=== PATIENT | female | born 1960 | race Caucasian/White ===

== ENCOUNTER 2017-07-05 07:35 | Emergency (ER) | payer BC ==
[2017-07-05] MEDS ORDERED: SODIUM CHLORIDE 0.9% 1,000 ML IV STA ×2 (08:03)
[2017-07-05] MEDS ORDERED: ACETAMINOPHEN TAB 500 MG TAB PO STA (08:03)
[2017-07-05] MEDS ORDERED: ORPHENADRINE 30 MG/ML 2 ML VIAL IVP STA (08:05)
--- NOTE | 2017-07-05 08:06 | ED ---
Fever HPI - General Chief Complaint: Fever Stated Complaint: Fever/ Cold Time Seen by Provider: 07/05/17 07:54 Source: patient, RN notes reviewed, old records reviewed Mode of arrival: ambulatory Limitations: no limitations - History of Present Illness Initial Comments: Patient is a 56-year-old female presents emergency Department chief complaint of fever for the past 2 days, body aches, sore throat and dry cough. Patient reports that she has been exposed to her [id number] with bronchitis. She did not do the flu shot. She states that she has diffuse body aches, stiff neck and headache. Patient states that she has had no rashes or any other abnormalities. She has received all her vaccines. Patient states that she is no nausea or vomiting. Denies any abdominal pain or diarrhea or dysuria. - Related Data Home Medications Medication Instructions Recorded Confirmed Albuterol Sulfate [Ventolin HFA] 1 - 2 puff INHALATION Q6H PRN 12/19/13 07/05/17 Fluticasone/Salmeterol [Advair 1 puff INHALATION RT-BID 12/19/13 07/05/17 500-50 Diskus] Montelukast Sodium [Singulair] 10 mg PO DAILY 12/19/13 07/05/17 Ibuprofen [Motrin] 800 mg PO TID PRN 07/05/17 07/05/17 amLODIPine [Norvasc] 5 mg PO DAILY 07/05/17 07/05/17 Previous Rx's Medication Instructions Recorded Oseltamivir [Tamiflu] 75 mg PO DAILY #5 cap 07/05/17 Promethazine/Dextromethorphan 5 ml PO TID #120 ml 07/05/17 [Phenergan DM Syrup] Allergies Allergy/AdvReac Type Severity Reaction Status Date / Time gluten Allergy Itching Verified 07/05/17 07:42 Review of Systems ROS Statement: Those systems with pertinent positive or pertinent negative responses have been documented in the HPI. ROS Other: All systems not noted in ROS Statement are negative. Past Medical History Past Medical History: Asthma, CVA/TIA, Eye Disorder, GERD/Reflux, Hypertension, Seizure Disorder History of Any Multi-Drug Resistant Organisms: None Reported Past Surgical History: Tubal Ligation Additional Past Surgical History / Comment(s): Brain surgery 1978, D&C Past Anesthesia/Blood Transfusion Reactions: No Reported Reaction Additional Past Anesthesia/Blood Transfusion Reaction / Comment(s): last 1978 Past Psychological History: Anxiety Smoking Status: Former smoker Past Alcohol Use History: Occasional Past Drug Use History: None Reported General Exam - General Exam Comments Initial Comments: 56-year-old female. No distress. Limitations: no limitations General appearance: alert, in no apparent distress Head exam: Present: atraumatic, normocephalic, normal inspection Eye exam: Present: normal appearance, PERRL, EOMI. Absent: scleral icterus, conjunctival injection, periorbital swelling ENT exam: Present: normal exam, mucous membranes moist. Absent: normal oropharynx (erythematous oropharynx, no exudate) Neck exam: Present: normal inspection, other (negative kernig and brudzunke ). Absent: tenderness, meningismus, lymphadenopathy Respiratory exam: Present: normal lung sounds bilaterally. Absent: respiratory distress, wheezes, rales, rhonchi, stridor Cardiovascular Exam: Present: regular rate, normal rhythm, normal heart sounds. Absent: systolic murmur, diastolic murmur, rubs, gallop, clicks GI/Abdominal exam: Present: soft, normal bowel sounds. Absent: distended, tenderness, guarding, rebound, rigid Extremities exam: Present: normal inspection, full ROM, normal capillary refill. Absent: tenderness, pedal edema, joint swelling, calf tenderness Back exam: Present: normal inspection Neurological exam: Present: alert, oriented X3, CN II-XII intact Psychiatric exam: Present: normal affect, normal mood Skin exam: Present: warm, dry, intact, normal color. Absent: rash Course Vital Signs 07/05/17 07/05/17 07:39 08:37 Temperature 100.6 F H Pulse Rate 90 Respiratory 18 16 Rate Blood Pressure 128/76 O2 Sat by Pulse 94 L Oximetry Medical Decision Making - Medical Decision Making 56-year-old female presents emergency Department day with 2 days of fever, bodyache, barking cough and chills. Patient was given IV fluids labwork obtained. Patient is positive for influenza A. Discussed that she is somewhat of the window for benefit of Tamiflu. She said request medication. Patient will be discharged with Phenergan with codeine. Chest x-rays reviewed and normal. Patient's understands that she is follow-up with primary care provider. She'll be written off of work. Patient is history plan will comply. Return parameters were discussed. - Lab Data Result diagrams: 07/05/17 08:25 07/05/17 08:25 Lab Results 07/05/17 07/05/17 07/05/17 Range/Units 08:25 08:25 08:25 WBC 4.5 (3.8-10.6) k/uL RBC 4.04 (3.80-5.40) m/uL Hgb 12.7 (11.4-16.0) gm/dL Hct 37.8 (34.0-46.0) % MCV 93.5 (80.0-100.0) fL MCH 31.5 (25.0-35.0) pg MCHC 33.7 (31.0-37.0) g/dL RDW 11.8 (11.5-15.5) % Plt Count 195 (150-450) k/uL Neutrophils % 75 % Lymphocytes % 15 % Monocytes % 6 % Eosinophils % 1 % Basophils % 1 % Neutrophils # 3.4 (1.3-7.7) k/uL Lymphocytes # 0.7 L (1.0-4.8) k/uL Monocytes # 0.3 (0-1.0) k/uL Eosinophils # 0.0 (0-0.7) k/uL Basophils # 0.0 (0-0.2) k/uL Sodium 136 L (137-145) mmol/L Potassium 3.5 (3.5-5.1) mmol/L Chloride 100 (98-107) mmol/L Carbon Dioxide 27 (22-30) mmol/L Anion Gap 9 mmol/L BUN 13 (7-17) mg/dL Creatinine 0.81 (0.52-1.04) mg/dL Est GFR (MDRD) Af Amer >60 (>60 ml/min/1.73 sqM) Est GFR (MDRD) Non-Af >60 (>60 ml/min/1.73 sqM) Glucose 121 H (74-99) mg/dL Calcium 9.2 (8.4-10.2) mg/dL Total Bilirubin 0.3 (0.2-1.3) mg/dL AST 26 (14-36) U/L ALT 39 (9-52) U/L Alkaline Phosphatase 69 (38-126) U/L Total Protein 7.1 (6.3-8.2) g/dL Albumin 4.3 (3.5-5.0) g/dL Heterophile Antibody Negative (Negative) Influenza Type A RNA (Not Detectd) Influenza Type B (PCR) (Not Detectd) 07/05/17 Range/Units 08:25 WBC (3.8-10.6) k/uL RBC (3.80-5.40) m/uL Hgb (11.4-16.0) gm/dL Hct (34.0-46.0) % MCV (80.0-100.0) fL MCH (25.0-35.0) pg MCHC (31.0-37.0) g/dL RDW (11.5-15.5) % Plt Count (150-450) k/uL Neutrophils % % Lymphocytes % % Monocytes % % Eosinophils % % Basophils % % Neutrophils # (1.3-7.7) k/uL Lymphocytes # (1.0-4.8) k/uL Monocytes # (0-1.0) k/uL Eosinophils # (0-0.7) k/uL Basophils # (0-0.2) k/uL Sodium (137-145) mmol/L Potassium (3.5-5.1) mmol/L Chloride (98-107) mmol/L Carbon Dioxide (22-30) mmol/L Anion Gap mmol/L BUN (7-17) mg/dL Creatinine (0.52-1.04) mg/dL Est GFR (MDRD) Af Amer (>60 ml/min/1.73 sqM) Est GFR (MDRD) Non-Af (>60 ml/min/1.73 sqM) Glucose (74-99) mg/dL Calcium (8.4-10.2) mg/dL Total Bilirubin (0.2-1.3) mg/dL AST (14-36) U/L ALT (9-52) U/L Alkaline Phosphatase (38-126) U/L Total Protein (6.3-8.2) g/dL Albumin (3.5-5.0) g/dL Heterophile Antibody (Negative) Influenza Type A RNA Detected H (Not Detectd) Influenza Type B (PCR) Not Detected (Not Detectd) - Radiology Data Radiology results: report reviewed His x-rays negative for any acute process. Disposition Clinical Impression: Influenza A Disposition: HOME SELF-CARE Condition: Good Instructions: Fever in Adults (ED), Influenza (ED) Additional Instructions: Rest, increase fluids. Follow-up with primary care provider. Return to emergency department if any alarming signs or symptoms occur. Prescriptions: Oseltamivir [Tamiflu] 75 mg PO DAILY #5 cap Promethazine/Dextromethorphan [Phenergan DM Syrup] 5 ml PO TID #120 ml Referrals: Dalton Cabezas DO [Primary Care Provider] - 1-2 days Time of Disposition: 09:21
[2017-07-05 08:35] LABS: Basophils % (A) 1 %; Eosinophils % (A) 1 %; HCT 37.8 % (34.0-46.0); HGB 12.7 gm/dL (11.4-16.0); Lymphocytes # (A) 0.7 k/uL (1.0-4.8); Lymphocytes % (A) 15 %; MCH 31.5 pg (25.0-35.0); MCHC 33.7 g/dL (31.0-37.0); MCV 93.5 fL (80.0-100.0); Mean Platelet Volume 6.4; Monocytes # (A) 0.3 k/uL (0-1.0); Monocytes % (A) 6 %; Neutrophils # (A) 3.4 k/uL (1.3-7.7); Neutrophils % (A) 75 %; Platelet Count 195 k/uL (150-450); RBC 4.04 m/uL (3.80-5.40); RDW 11.8 % (11.5-15.5); WBC 4.5 k/uL (3.8-10.6)
[2017-07-05 08:47] LABS: ALT 39 U/L (9-52); AST 26 U/L (14-36); Albumin 4.3 g/dL (3.5-5.0); Alkaline Phosphatase 69 U/L (38-126); Anion Gap 9 mmol/L; Blood Urea Nitrogen 13 mg/dL (7-17); Calcium 9.2 mg/dL (8.4-10.2); Carbon Dioxide 27 mmol/L (22-30); Chloride 100 mmol/L (98-107); Glucose 121 mg/dL (74-99); Potassium 3.5 mmol/L (3.5-5.1); Sodium 136 mmol/L (137-145); Total Bilirubin 0.3 mg/dL (0.2-1.3); Total Protein 7.1 g/dL (6.3-8.2)
--- NOTE | 2017-07-05 08:59 | XR ---
EXAMINATION TYPE: XR chest 2V DATE OF EXAM: 07/05/2017 COMPARISON: 04/01/2013 HISTORY: Headache TECHNIQUE: Frontal and lateral views of the chest are obtained. FINDINGS: Heart and mediastinum are normal. Lungs are clear. Diaphragm is normal. Bony thorax is int act. IMPRESSION: Normal chest. No change.
[2017-07-05 09:47] VITALS: BP 131/80; PULSE 16; RESP 77; TEMP 97.3
== END 2017-07-05 09:49 | disposition home or self-care (01) ==
LOC: EC 07:35
DX: J10.1 Influenza due to other identified influenza virus with other respiratory manifestations (principal); J45.909 Unspecified asthma, uncomplicated; I10 Essential (primary) hypertension; F41.9 Anxiety disorder, unspecified; Z87.891 Personal history of nicotine dependence; Z79.51 Long term (current) use of inhaled steroids; Z79.899 Other long term (current) drug therapy; Z91.048 Other nonmedicinal substance allergy status
CPT/HCPCS: 36415; 80053; 83605; 85025; 86308; 87040; 87502; 71020; 99284; 96374; 96361; J2360

== ENCOUNTER → 2017-07-22 | Outpatient (CLI) | payer BC ==
--- NOTE | 2017-07-22 11:13 | XR ---
EXAMINATION TYPE: XR chest 2V DATE OF EXAM: 07/22/2017 COMPARISON: 07/05/2017 INDICATION: Bronchitis, COPD TECHNIQUE: Frontal and lateral views of the chest are obtained. FINDINGS: The heart size is normal. The pulmonary vasculature is normal. The lungs are clear. Findings are stable from June 2017 IMPRESSION: 1. No acute pulmonary process.
== END | disposition home or self-care (01) ==
LOC: RADXRMAIN 10:23
PROVIDERS: ATTEND Family Medicine
DX: J20.0 Acute bronchitis due to Mycoplasma pneumoniae (principal)
CPT/HCPCS: 71046

== ENCOUNTER → 2018-01-14 | Outpatient (CLI) | payer BC ==
--- NOTE | 2018-01-18 09:37 | MM ---
Reason for exam: screening (asymptomatic). Last mammogram was performed 12 years and 10 months ago. Physical Findings: A clinical breast exam by your physician is recommended on an annual basis and results should be correlated with mammographic findings. MG 3D Screening Mammo W/Cad Bilateral CC and MLO view(s) were taken. Prior study comparison: May 29, 2015, mammogram, performed at [facility]. May 26, 2014, mammogram, performed at [facility]. March 27, 2005, bilateral screening mammogram w/CAD. There are scattered fibroglandular densities. No suspicious abnormality. No significant changes when compared with prior studies. ASSESSMENT: Negative, BI-RAD 1 RECOMMENDATION: Routine screening mammogram of both breasts in 1 year.
== END | disposition home or self-care (01) ==
LOC: RADMAMWWP 13:45
PROVIDERS: ATTEND Obstetrics & Gynecology
DX: Z12.31 Encounter for screening mammogram for malignant neoplasm of breast (principal)
CPT/HCPCS: 77063; 77067

== ENCOUNTER → 2018-02-23 | Outpatient (CLI) | payer BC ==
--- NOTE | 2018-02-23 17:43 | NM ---
EXAMINATION TYPE: NM bone scan whole body DATE OF EXAM: 02/23/2018 COMPARISON: NONE HISTORY: Polyarthralgia, rheumatoid factor Delayed whole-body scanning was performed following the injection of 25.1 mCi Tc 99m MDP. Images acq uired 3.5 hours post injection. FINDINGS: Soft tissue uptake is normal. Mild uptake within the lumbar spine is likely due to degenerative bains e. Uptake in the shoulders, elbows, wrists, feet, ankles, sternoclavicular joints may be degenerative . There is uptake at the level of the greater trochanter, right hip. IMPRESSION: Findings could be indicative of underlying arthropathy, degenerative disc disease.
== END | disposition home or self-care (01) ==
LOC: RADNMMAIN 10:55
PROVIDERS: ATTEND Internal Medicine Rheumatology
DX: M25.50 Pain in unspecified joint (principal); R76.8 Other specified abnormal immunological findings in serum; G89.29 Other chronic pain
CPT/HCPCS: 78306; A9503

== ENCOUNTER → 2019-07-28 | Outpatient (CLI) | payer BC ==
--- NOTE | 2019-08-01 09:07 | MM ---
Reason for exam: screening (asymptomatic). Last mammogram was performed 1 year and 6 months ago. History: Patient is postmenopausal. Family history of breast cancer in mother, breast cancer in daughter, breast cancer in maternal aunt, and breast cancer in maternal cousin. Took hormonal contraceptives for 20 years. Physical Findings: A clinical breast exam by your physician is recommended on an annual basis and results should be correlated with mammographic findings. MG 3D Screening Mammo W/Cad Bilateral CC and MLO view(s) were taken. Prior study comparison: January 14, 2018, bilateral MG 3d screening mammo w/cad. May 29, 2015, mammogram, performed at [facility]. The breast tissue is heterogeneously dense. This may lower the sensitivity of mammography. No significant changes when compared with prior studies. ASSESSMENT: Benign, BI-RAD 2 RECOMMENDATION: Routine screening mammogram of both breasts in 1 year.
== END | disposition home or self-care (01) ==
LOC: RADMAMWWP 16:37
PROVIDERS: ATTEND Obstetrics & Gynecology
DX: Z12.31 Encounter for screening mammogram for malignant neoplasm of breast (principal)
CPT/HCPCS: 77063; 77067

== ENCOUNTER → 2020-09-21 | Outpatient (CLI) | payer BC ==
--- NOTE | 2020-09-25 10:39 | MM ---
Reason for exam: screening (asymptomatic). Last mammogram was performed 1 year and 2 months ago. History: Patient is postmenopausal. Family history of breast cancer in mother, breast cancer in daughter, breast cancer in maternal aunt, and breast cancer in maternal cousin. Took hormonal contraceptives for 20 years. Physical Findings: A clinical breast exam by your physician is recommended on an annual basis and results should be correlated with mammographic findings. MG Screening Mammo w CAD Bilateral CC and MLO view(s) were taken. Prior study comparison: July 28, 2019, bilateral MG 3d screening mammo w/cad. January 14, 2018, bilateral MG 3d screening mammo w/cad. There are scattered fibroglandular densities. No significant changes when compared with prior studies. ASSESSMENT: Negative, BI-RAD 1 RECOMMENDATION: Routine screening mammogram of both breasts in 1 year.
== END ==
LOC: RADMAMWWP 14:21
PROVIDERS: ATTEND Obstetrics & Gynecology
DX: Z12.31 Encounter for screening mammogram for malignant neoplasm of breast (principal); Z80.3 Family history of malignant neoplasm of breast; Z78.0 Asymptomatic menopausal state
CPT/HCPCS: 77067

== ENCOUNTER → 2022-01-15 | Outpatient (CLI) | payer BC, OTHER ==
[2022-01-15 13:58] VITALS: BP 143/84; PULSE 79; RESP 18; TEMP 98.1
--- NOTE | 2022-01-22 07:29 | P.PAINPG ---
PQRS Measure Charge Sheet Comment: HISTORY OF PRESENT ILLNESS: 61 yr old female w at side as a referral from Dr. Jeffery presents today with severe and chronic neck pain secondary to DDD and facet arthropathy for evaluation. Pt states her pain level is currently at 5/10 in intensity, constant, achy sensation in the middle aspect of her cervical spine with radiation of burning pain occasionally to the back of her head into her shoulders. Pain is provoked with rotation and hyperextension. Pain is relieved with medications (ibuprofen), heat, daily home stretching regimen, repositioning and rest. Patient has not attended physical therapy due to excessive a few constant vehicle problems. CT myelogram of the cervical spine reviewed. Patient states she cannot get an MRI of the cervical spine due to cerebral clamps. PMH: Asthma, CVA/TIA, Eye Disorder, GERD, HTN, SZ Disorder, Anxiety, RA, Hypothyroidism PSH: Tubal Ligation, D & C, Brain Surgery (1978) SH: Former Tobacco user, Occasional ETOH, No illicit drug use FH: Non contributory All: Gluten Meds: See list REVIEW OF ORGAN SYSTEMS: CONSTITUTIONAL: No fevers or chills. No recent weight loss. NEUROLOGICAL: + numbness and tingling along the distal extremities. No seizure disorders or headaches. MUSCULOSKELETAL: + pain PSYCHIATRIC: Denies current depression or suicidal thoughts. Physical Examinations : Constitutional : Cooperative , not in acute distress . Neurologic : Cranial nerve II to XII intact. No focal neurological deficits. Psychiatric : alert & oriented x 3. Matching mood & appropriate affect. Judgment & insight intact. Musculoskeletal : Cervical Spine Motor strength in the deltoid and biceps: Normal right side. Normal Left side Motor strength biceps and the wrist extensors: Normal right side . Normal left side Motor strength in the triceps muscle: Normal right side. Normal left side Deep tendon reflexes: Normal at the biceps. Normal at Brachioradialis. Normal at triceps Vertebral body tenderness to deep palpation over Cervical facet loading test: positive bilaterally over C3-C4, C4-C5 Spurling test: positive bilaterally Neck distraction test: positive bilaterally Joey sign: positive bilaterally Lumbar spine Motor strength lower extremities ,thigh and legs 5/5 Right side , 5/5 Left side Deep tendon reflexes : Normal Knee Jerk. Normal Ankle Jerk Vertebral body tenderness over Lumbar facet Loading Test: positive Right / positive Left Range of motion of the lumbar spine Flexion 30 degrees, extension 10 degrees Straight Leg Raise test: Left/ Right positive at degree Adrián test: positive right / positive left. Severe tenderness over the Sacroiliac joint on the Right / Left sides Gaenslen test: positive bilaterally Seated flexion test: positive bilaterally. Sacral spine : Severe tenderness over the Sacroiliac joint: right side / left side Range of motion: Flexion of the lumbar spine <60 degrees Range of motion: Extension of the lumbar spine <20 degrees Gaenslen's Test positive Edwin's Test positive Adrián test: positive right side / left side Thigh Thrust Test Sacral Thrust Test Imaging: CT Myelogram of cervical spine Assessment/ Plan : Cervical DDD Recommendation of BL MBB C3-C4, C4-C5. May need a series of injections, up until RFA, for optimal pain relief. Risks, benefits of procedure discussed and patient verbalized understanding. Denies aspirin or anti- coagulant use or medical history of diabetes. Protocol for discontinuation/ continuation of medications lorie procedure discussed. All questions answered. I have spent greater than 30 minutes on patient care today. Dr Valdovinos was available by phone for the evaluation of this patient. The time was used to review the medical records including relevant urine studies and Prescription history (MAPs), review of the available imaging, evaluation and examination of the patient, coordination of care with the medical staff and if applicable referring physicians, as well as creation of the medical record PQRS Narrative: Smoking Status Former smoker Home Medications: Ambulatory Orders Albuterol Sulfate [Ventolin HFA] 1 - 2 puff INHALATION Q6H PRN 12/19/13 Fluticasone Propion/Salmeterol [Advair 500-50 Diskus] 1 puff INHALATION RT-BID 12/19/13 Montelukast Sodium [Singulair] 10 mg PO DAILY 12/19/13 Ibuprofen [Motrin] 800 mg PO TID PRN 07/05/17 Oseltamivir [Tamiflu] 75 mg PO DAILY #5 cap 07/05/17 Promethazine/Dextromethorphan [Phenergan DM Syrup] 5 ml PO TID #120 ml 07/05/17 amLODIPine [Norvasc] 5 mg PO DAILY 07/05/17 Controlled Substance Measures - Controlled Substance Measures Is patient prescribed a controlled substance at discharge?: No
== END ==
LOC: PNWHC3 12:32
PROVIDERS: ATTEND Specialist
DX: M47.892 Other spondylosis, cervical region (principal); M50.30 Other cervical disc degeneration, unspecified cervical region; J45.909 Unspecified asthma, uncomplicated; M06.9 Rheumatoid arthritis, unspecified; Z86.73 Personal history of transient ischemic attack (TIA), and cerebral infarction without residual deficits; K21.9 Gastro-esophageal reflux disease without esophagitis; I10 Essential (primary) hypertension; F41.9 Anxiety disorder, unspecified; E03.9 Hypothyroidism, unspecified; Z87.891 Personal history of nicotine dependence; Z91.018 Allergy to other foods
CPT/HCPCS: 99211

== ENCOUNTER → 2022-03-06 | Outpatient (CLI) | payer BC, OTHER ==
[2022-03-06 13:22] VITALS: BP 145/80; PULSE 92; RESP 16
--- NOTE | 2022-03-06 14:19 | P.PAINPG ---
PQRS Measure Charge Sheet Comment: A 61 yr old female with a history of severe and chronic neck pain secondary to cervical degenerative disc diseases and spondylosis with facet arthropathy without myelopathy presents today for evaluation s/p BL MBB C3-C4, C4-C5 #1. Pt states she received 75% pain relief x 1 day s/p procedure. Pain level is c urrently at 4 /10 in intensity, intermittent, localized in the mid cervical spine, burning, grinding in character w shooting towards the BUEs. Pain is provoked by lifting and flexion of neck. Pt is worried PT would provoke pain again. Pain is alleviated with medications (Ibuprofen 800mg), alternates heat & ice, guided stretches and yoga, repositioning and rest. Interventional pain procedures completed include BL C3-C5 #1 Patient is currently on Ibuprofen Patient denies any side effects of the medication(s), denies excessive drowsiness or sleepiness, denies suicidal ideation and reports that the current pain medication is helping to control the pain and improve activities of daily living. Patient denies any motor or sensory deficits. Patient denies any fever or night sweats, denies any change in the bowel movements or urination. Physical Examination: -Constitutional: Cooperative. Not in acute distress . - Neurologic: Cranial nerve II to XII intact. No focal neurological deficits. - Psychatric: Alert & oriented x 3. Matching mood & appropriate affect. Judgment and insight intact. - Musculoskeletal: Cervical spine: Muscle bulk/ tone/ strength in the bilateral upper extremities normal Vertebral body tenderness to palpation over Spurling test positive Distraction test positive Facet loading test positive over BL C3-C4, C4-C5 w jump reflex upon palpation Thoracic spine Muscle bulk / tone/ strength in the bilateral paraspinal muscles normal Vertebral body tender to palpation over Facet loading test positive Lumbar spine: Motor bulk/ tone/ strength lower extremities , thigh and legs : 5/5 Deep tendon reflexes : Normal Knee Jerk. Normal Ankle Jerk . Vertebral body tenderness to palpation over Lumbar Facet Loading Test positive Straight Leg Raise: positive at 30 degrees right side/ left side Gaenslen's Test positive Sacral spine : Severe tenderness over the Sacroiliac joint: right side / left side Range of motion: Flexion of the lumbar spine <60 degrees Range of motion: Extension of the lumbar spine <20 degrees Gaenslen's Test positive Edwin's Test positive Adrián test: positive right side / left side Thigh Thrust Test Sacral Thrust Test Assessment and plan: Chronic neck pain secondary to cervical degenerative disc disease , spondylosis with facet arthropathy without myelopathy Recommendation of BL MBB C3-C4, C4-C5 #2. May need a series of injections, up until RFA, for optimal pain relief. Risks, benefits of procedure discussed and pt verbalized understanding. Denies anticoagulant use or medical history of diabetes. All patient questions answered MAPS reviewed and it was appropriate. I have spent less than 30 minutes on patient care today. Dr Valdovinos was available by phone for the evaluation of this patient. The time was used to review the medical records including relevant urine studies and Prescription history (MAPs), review of the available imaging, evaluation and examination of the patient, coordination of care with the medical staff and if applicable referring physicians, as well as creation of the medical record PQRS Narrative: Smoking Status Former smoker Hx Alcohol Use (MH) Yes: SOCIAL Home Medications: Ambulatory Orders Albuterol Sulfate [Ventolin HFA] 1 - 2 puff INHALATION Q6H PRN 12/19/13 Fluticasone Propion/Salmeterol [Advair 500-50 Diskus] 1 puff INHALATION RT-BID 12/19/13 Montelukast Sodium [Singulair] 10 mg PO DAILY 12/19/13 Ibuprofen [Motrin] 800 mg PO TID PRN 07/05/17 amLODIPine [Norvasc] 5 mg PO DAILY 07/05/17 ALPRAZolam [Xanax] 1 mg PO HS 02/20/22 Ascorbic Acid [Vitamin C] 500 mg PO DAILY 02/20/22 Cetirizine HCl [Zyrtec] 10 mg PO DAILY 02/20/22 Dextroamphetamine/Amphetamine [Adderall] 30 mg PO DAILY 02/20/22 Inulin/Chromium Picolinate [Fiber Gummies Chew] 1 tab PO DAILY 02/20/22 Levothyroxine Sodium [Synthroid] 50 mcg PO DAILY 02/20/22 Vitamin B Complex 1 each PO DAILY 02/20/22 Controlled Substance Measures - Controlled Substance Measures Is patient prescribed a controlled substance at discharge?: No
== END ==
LOC: PNWHC3 12:38
PROVIDERS: ATTEND Specialist
DX: M47.812 Spondylosis without myelopathy or radiculopathy, cervical region (principal); M50.30 Other cervical disc degeneration, unspecified cervical region; G89.29 Other chronic pain; Z87.891 Personal history of nicotine dependence; Z91.018 Allergy to other foods
CPT/HCPCS: 99211

== ENCOUNTER 2022-05-02 08:46 | Day surgery (SDC) | payer BC, OTHER ==
[2022-04-30 13:13] VITALS: BMI 24.8
[~2022-05-02 08:46] MED LIST: LACTATED RINGERS 1,000 ML IV SCH; LIDOCAINE 1% (10MG/ML) FOR IV START INTRADERMA PRN
[2022-05-02 09:23] VITALS: RESP 16; TEMP 97.2
[2022-05-02] MEDS ORDERED: ROPIVACAINE 5 MG/ML 20 ML AMPULE ONE (09:26)
[2022-05-02] MEDS ORDERED: methylPREDNISolone ACETATE 40 MG/ML 1 ML VIAL ONE (09:26)
[2022-05-02] MEDS ORDERED: fentaNYL (PF) 50 MCG/ML 2 ML AMP ONE (09:26)
[2022-05-02] MEDS ORDERED: MIDAZOLAM 2 MG/2 ML VIAL ONE (09:26)
--- NOTE | 2022-05-02 09:47 | P.PCN ---
Date of Procedure: 05/02/22 Procedure(s) Performed: PREOPERATIVE DIAGNOSIS: 1-Cervical Spondylosis with Facet Arthropathy.without myelopathy. 2-cervical degenerative disc disease POSTOPERATIVE DIAGNOSIS: Same as preoperative diagnosis. PROCEDURES: Diagnostic bilateral C3, C4 , C5 medial branch blocks, with flu oroscopic guidance (fluoroscopy images available in radiology department ) ( to target the facet joint at bilateral C3-4 , C4- 5) ANESTHESIA: Monitored anesthesia care as per anesthesia department . EBL: Minimal PROCEDURE INDICATION: The patient with neck pain secondary to cervical arthropathy unresponsive to more conservative treatments. PROCEDURE DESCRIPTION / TECHNIQUE: The patient was seen and identified in the preoperative area. Risks, benefits, complications, and alternatives were discussed with the patient, the patient agreed to proceed with the procedure and signed the consent. IV was started. Vital signs remained stable throughout the procedure. Patient was taken to the OR and time out was completed. The patient was placed in the prone position on the procedure table. A pillow was placed under the patients chest to increase the cervical interlaminar space. The cervical area was prepped and draped in the usual sterile fashion. Critical pause was taken. Vital signs were closely monitored during the procedure. Conscious sedation was used during the procedure to decrease patients anxiety. Using cross-table lateral fluoroscopy, the centroid of the trapezoid of right C3, C4 , C5 , was identified, marked, and localized with 1% lidocaine 1 ml at each level for skin and Sub Q infiltrations . Subsequently, a 25 G 3 spinal needle was advanced guided by fluoroscopy to the centroid of the trapezoid of Right C3, C4 , C5, Weidman tip position was confirmed at the centroid of the trapezoids of Right C3 , C4 , C5 with anteroposterior fluoroscopy. Subsequently, 1.5 ml of preservative-free Ropivacaine 0.5% mixed with Depo- Medrol 20 mg and half ml of the mixture was injected after negative aspiration for blood and CSF. Weidman was then removed intact the same procedure was repeated at the left C3 , C4 , C5 ,levels. COMPLICATIONS: No acute complications. DISPOSITION / PLANS: The patient was placed in a supine position and transferred to the recovery area in a stable condition for observation and was discharged from the recovery room after meeting discharge criteria. Home discharge instructions given to the patient by the staff. The patient was reexamined prior to discharge. The patient will schedule a follow up in the clinic in 2-4 weeks.
[2022-05-02] MEDS ORDERED: IV FLUID CONTINUATION 700 ML IV ONE (09:54)
--- NOTE | 2022-05-02 10:02 | FL ---
Fluoroscopy History: Pain 26 sec FL
[2022-05-02 10:07] VITALS: BP 139/89; PULSE 72
== END 2022-05-02 10:27 | disposition home or self-care (01) ==
LOC: ORPAIN 08:46
PROVIDERS: ATTEND Specialist
DX: M47.812 Spondylosis without myelopathy or radiculopathy, cervical region (principal); M50.31 Other cervical disc degeneration, high cervical region; I10 Essential (primary) hypertension; J45.909 Unspecified asthma, uncomplicated; E03.9 Hypothyroidism, unspecified; F41.9 Anxiety disorder, unspecified; K21.9 Gastro-esophageal reflux disease without esophagitis; Z79.899 Other long term (current) drug therapy
CPT/HCPCS: 64490; 64491; J2250; J1030; J3010; J2795

== ENCOUNTER → 2022-05-21 | Outpatient (CLI) | payer BC, OTHER ==
--- NOTE | 2022-05-22 19:02 | MM ---
Reason for Exam: Screening (asymptomatic). Last mammogram was performed 1 year(s) and 8 month(s) ago. Patient History: Menarche at age 12. First Full-Term at age 21. Postmenopausal. Patient used Hormonal Contraceptives for 20 years. Maternal cousin had breast cancer. Maternal aunt had breast cancer. Daughter had breast cancer. Mother had breast cancer. Risk Values: Cammy 5 year model risk: 7.2%. NCI Lifetime model risk: 33.4%. Prior Study Comparison: 01/14/2018 Bilateral Screening Mammogram, [facility]. 07/28/2019 Bilateral Screening Mammogram, [facility]. 09/21/2020 Bilateral Screening Mammogram, [facility]. Tissue Density: There are scattered fibroglandular densities. Findings: Analyzed By CAD. Unchanged asymmetric density central posterior left cc view. There is no suspicious group of microcalcifications or new suspicious mass in either breast. Overall Assessment: Benign, BI-RAD 2 Management: Screening Mammogram of both breasts in 1 year. Note the patient's very high Cammy score and overall lifetime risk for the development of breast cancer. Consider specialist referral to assess eligibility for a risk reducing agent. In addition, the patient may qualify for future screening with alternating mammogram and breast MRI. Patient should continue monthly self breast exams. These results should not preclude additional follow-up of suspicious palpable abnormalities. Electronically signed and approved by: Quan Pickering M.D. Radiologist
== END | disposition home or self-care (01) ==
LOC: RADMAMWWP 11:22
PROVIDERS: ATTEND Obstetrics & Gynecology
DX: Z12.31 Encounter for screening mammogram for malignant neoplasm of breast (principal); Z78.0 Asymptomatic menopausal state; Z80.3 Family history of malignant neoplasm of breast
CPT/HCPCS: 77063; 77067

== ENCOUNTER → 2022-05-26 | Outpatient (CLI) | payer BC, OTHER ==
[2022-05-26 10:31] VITALS: BP 160/79; PULSE 80; RESP 18; TEMP 98
--- NOTE | 2022-05-26 14:46 | P.PAINPG ---
PQRS Measure Charge Sheet Comment: A 61 yr old female w at side with a history of severe and chronic neck pain secondary to cervical DDD and spondylosis with facet arthropathy without myelopathy presents today for evaluation s/p BL MBB C3-C4, C4-C5 #2. Pt states she experienced 90% pain relief x 7 days s/p procedure. Pain level is currently at 7/10 in intensity, constant, localized in the mid to lower cervical spine, sharp/ achy in character w shooting towards the BL shoulders. Pain is provoked by pushing, pulling, lifting. Pain is alleviated with medications (ibuprofen), injections, ice, heat, home stretching regimen, repositioning and rest. Interventional pain procedures completed include BL MBB C3-C5 x2 Patient is currently on ibuprofen Patient denies any side effects of the medication(s), denies excessive drowsiness or sleepiness, denies suicidal ideation and reports that the current pain medication is helping to control the pain and improve activities of daily living. Patient denies any motor or sensory deficits. Patient denies any fever or night sweats, denies any change in the bowel movements or urination. Physical Examination: -Constitutional: Cooperative. Not in acute distress . - Neurologic: Cranial nerve II to XII intact. No focal neurological deficits. - Psychatric: Alert & oriented x 3. Matching mood & appropriate affect. Judgment and insight intact. - Musculoskeletal: Cervical spine: Muscle bulk/ tone/ strength in the bilateral upper extremities normal Vertebral body tenderness to palpation over Spurling test positive Distraction test positive Facet loading test positive TTP over BL C3-C4, C4-C5 facets Thoracic spine Muscle bulk / tone/ strength in the bilateral paraspinal muscles normal Vertebral body tender to palpation over Facet loading test positive Lumbar spine: Motor bulk/ tone/ strength lower extremities , thigh and legs : 5/5 Deep tendon reflexes : Normal Knee Jerk. Normal Ankle Jerk . Vertebral body tenderness to palpation over Lumbar Facet Loading Test positive Straight Leg Raise: positive at 30 degrees right side/ left side Gaenslen's Test positive Sacral spine : Severe tenderness over the Sacroiliac joint: right side / left side Range of motion: Flexion of the lumbar spine <60 degrees Range of motion: Extension of the lumbar spine <20 degrees Gaenslen's Test positive Adrián test: positive right side / left side Thigh Thrust Test Sacral Thrust Test Assessment and plan: Chronic neck pain secondary to cervical degenerative disc disease, spondylosis with facet arthropathy without myelopathy Recommendation of BL RFA C3- C4, C4-C5. May need to schedule L and R sided OR appointments separately if timing is an issue. Risks, benefits of procedure discussed and pt verbalized understanding. Admits to anticoagulant use or medical history of diabetes. Protocol for discontinuation/ continuation of medications lorie procedure discussed. All patient questions answered I have spent less than 30 minutes on patient care today. Dr Valdovinos was available by phone for the evaluation of this patient. The time was used to review the medical records including relevant urine studies and Prescription history (MAPs), review of the available imaging, evaluation and examination of the patient, coordination of care with the medical staff and if applicable referring physicians, as well as creation of the medical record PQRS Narrative: Smoking Status Former smoker Hx Alcohol Use (MH) Yes: SOCIAL Home Medications: Ambulatory Orders Albuterol Sulfate [Ventolin HFA] 1 - 2 puff INHALATION Q6H PRN 12/19/13 Fluticasone Propion/Salmeterol [Advair 500-50 Diskus] 1 puff INHALATION BID 12/19/13 Montelukast Sodium [Singulair] 10 mg PO DAILY 12/19/13 Ibuprofen [Motrin] 800 mg PO TID PRN 07/05/17 amLODIPine [Norvasc] 5 mg PO DAILY 07/05/17 ALPRAZolam [Xanax] 1 mg PO HS 02/20/22 Ascorbic Acid [Vitamin C] 500 mg PO DAILY 02/20/22 Cetirizine HCl [Zyrtec] 10 mg PO DAILY 02/20/22 Dextroamphetamine/Amphetamine [Adderall] 30 mg PO DAILY 02/20/22 Inulin/Chromium Picolinate [Fiber Gummies Chew] 1 tab PO DAILY 02/20/22 Levothyroxine Sodium [Synthroid] 50 mcg PO DAILY 02/20/22 Vitamin B Complex 1 each PO DAILY 02/20/22 Controlled Substance Measures - Controlled Substance Measures Is patient prescribed a controlled substance at discharge?: No
== END ==
LOC: PNWHC3 08:47
PROVIDERS: ATTEND Specialist
DX: M47.812 Spondylosis without myelopathy or radiculopathy, cervical region (principal); M50.30 Other cervical disc degeneration, unspecified cervical region; G89.29 Other chronic pain; Z79.01 Long term (current) use of anticoagulants; E11.9 Type 2 diabetes mellitus without complications; Z79.4 Long term (current) use of insulin; Z87.891 Personal history of nicotine dependence; Z91.018 Allergy to other foods
CPT/HCPCS: 99211

== ENCOUNTER → 2023-04-15 | Outpatient (CLI) | payer OTHER ==
--- NOTE | 2023-04-15 13:30 | XR ---
EXAMINATION TYPE: XR chest 2V DATE OF EXAM: 04/15/2023 COMPARISON: 07/22/2017 HISTORY: Shortness of breath TECHNIQUE: Frontal and lateral views of the chest are obtained. FINDINGS: Scattered senescent parenchymal changes noted. Hyperinflation compatible with COPD. No evidence for infiltrate. No evidence for atelectasis. Heart size is stable. Mediastinal structures are stable and grossly unremarkable. No evidence for hilar prominence. Degenerative changes dorsal spine. IMPRESSION: 1. No evidence for acute pulmonary disease.
== END | disposition home or self-care (01) ==
LOC: RADXRMAIN 12:59
PROVIDERS: ATTEND Family Medicine
DX: J18.0 Bronchopneumonia, unspecified organism (principal)
CPT/HCPCS: 71046

== ENCOUNTER → 2023-05-07 | Outpatient (CLI) | payer OTHER ==
--- NOTE | 2023-05-07 10:33 | US ---
EXAMINATION TYPE: US gallbladder DATE OF EXAM: 05/07/2023 COMPARISON: NONE CLINICAL INDICATION: Female, 62 years old with history of R10.9 ABD PAIN; RUQ pain x 1 year. TECHNIQUE: Multiple sonographic images of the right upper quadrant are obtained. FINDINGS: EXAM MEASUREMENTS: Liver Length: 15.8 cm Gallbladder Wall: 0.2 cm CBD: 0.7 cm Right Kidney: 9.8 x 3.9 x 5.3 cm Pancreas: Body and Tail obscured by overlying bowel gas Liver: wnl Gallbladder: wnl Evidence for sonographic Encarnacion's sign: none CBD: wnl Right Kidney: wnl Visualized portions of the pancreas unremarkable. The body and tail is obscured by overlying bowel ga s. The liver is unremarkable without focal lesion. Gallbladder demonstrates no evidence of wall thick ening, gallstones, or surrounding fluid. Per geotechnical department manager, negative sonographic Encarnacion sign. Common bi le duct is upper limits of normal. Right kidney measures no evidence of hydronephrosis, nephrolithias is, or solid mass. IMPRESSION: 1. Common bile duct at the upper limits of normal measuring 7 mm. Correlation with biliary labs is r ecommended. 2. No ultrasound evidence for acute cholecystitis.
== END | disposition home or self-care (01) ==
LOC: RADUSWWP 08:26
PROVIDERS: ATTEND Family Medicine
DX: R10.11 Right upper quadrant pain (principal)
CPT/HCPCS: 76705

== ENCOUNTER → 2023-07-15 | Outpatient (CLI) | payer OTHER ==
--- NOTE | 2023-07-19 14:57 | MM ---
Reason for Exam: Screening (asymptomatic). Last mammogram was performed 1 year(s) and 2 month(s) ago. Patient History: Menarche at age 12. First Full-Term at age 21. Postmenopausal. Patient used Hormonal Contraceptives for 20 years. Maternal cousin had breast cancer. Maternal aunt had breast cancer. Risk Values: Cammy 5 year model risk: 1.1%. NCI Lifetime model risk: 5.8%. Prior Study Comparison: 07/28/2019 Bilateral Screening Mammogram, [facility]. 09/21/2020 Bilateral Screening Mammogram, [facility]. 05/21/2022 Bilateral MG 3D screening mammo w/cad, [facility]. Tissue Density: There are scattered fibroglandular densities. Findings: Analyzed By CAD. The pattern is symmetrical and stable. No significant interval changes. No suspicious groups of microcalcifications, spiculated or lobular masses, architectural distortion or other secondary signs of malignancy are mammographically apparent. Overall Assessment: Negative, BI-RAD 1 Management: Screening Mammogram of both breasts in 1 year. A negative mammogram report should not preclude additional follow up of suspicious palpable abnormalities. Patient should continue monthly self breast exam. A clinical breast exam by your physician is recommended on an annual basis and results should be correlated with mammographic findings. Electronically signed and approved by: Skyler Stevenson D.O. Radiologis
== END | disposition home or self-care (01) ==
LOC: RADMAMWWP 12:58
PROVIDERS: ATTEND Obstetrics & Gynecology
DX: Z12.31 Encounter for screening mammogram for malignant neoplasm of breast (principal); Z80.3 Family history of malignant neoplasm of breast; Z78.0 Asymptomatic menopausal state
CPT/HCPCS: 77067

== ENCOUNTER → 2023-08-13 | Outpatient (CLI) | payer OTHER ==
--- NOTE | 2023-08-14 07:31 | XR ---
EXAMINATION TYPE: XR chest 2V DATE OF EXAM: 08/13/2023 COMPARISON: 04/15/2023 HISTORY: Shortness of breath TECHNIQUE: Frontal and lateral views of the chest are obtained. FINDINGS: Scattered senescent parenchymal changes noted. Hyperinflation compatible with COPD. No evidence for infiltrate. No evidence for atelectasis. Heart size is stable. Mediastinal structures are stable and grossly unremarkable. No evidence for hilar prominence. Degenerative changes dorsal spine. IMPRESSION: 1. No evidence for acute pulmonary disease.
== END | disposition home or self-care (01) ==
LOC: RADXRMAIN 15:30
PROVIDERS: ATTEND Family Medicine
DX: R05.9 Cough, unspecified (principal); R06.02 Shortness of breath; Z87.891 Personal history of nicotine dependence
CPT/HCPCS: 71046

== ENCOUNTER 2023-09-16 07:08 | Day surgery (SDC) | payer OTHER ==
[2023-09-14 11:11] VITALS: BMI 22.6
[~2023-09-16 07:08] MED LIST changes: -LACTATED RINGERS 1,000 ML IV SCH
--- NOTE | 2023-09-16 07:32 | P.GSHP ---
History of Present Illness H&P Date: 09/16/23 CHIEF COMPLAINT: GERD and colon screen HISTORY OF PRESENT ILLNESS: The patient is a 63-year-old female who presents with gastroesophageal reflux disease and need for colon screen. Upper and lower endoscopy were offered for further evaluation and management. PAST MEDICAL HISTORY: Please see list. PAST SURGICAL HISTORY: Please see list. MEDICATIONS: Please see list. ALLERGIES: Please see list. SOCIAL HISTORY: No illicit drug use FAMILY HISTORY: No reports of Crohn disease or ulcerative colitis. REVIEW OF ORGAN SYSTEMS: CONSTITUTIONAL: No reports of fevers or chills. GI: Denies any blood in stools or constipation. PHYSICAL EXAM: VITAL SIGNS: Stable GENERAL: Well-developed pleasant in no acute distress. HEENT: No scleral icterus. Extraocular movements grossly intact. Moist buccal mucosa. NECK: Supple without lymphadenopathy. CHEST: Unlabored respirations. Equal bilateral excursions. CARDIOVASCULAR: Regular rate and rhythm. Distal 2+ pulses. ABDOMEN: Soft, nondistended. MUSCULOSKELETAL: No clubbing, cyanosis, or edema. ASSESSMENT: 1. Gastroesophageal reflux disease 2. Colon screen. PLAN: 1. Recommend proceeding with an upper and lower endoscopy Past Medical History Past Medical History: Asthma, CVA/TIA, Eye Disorder, Fibromyalgia, GERD/Reflux, Hypertension, Rheumatoid Arthritis (RA), Seizure Disorder, Thyroid Disorder Additional Past Medical History / Comment(s): prior bleeding with stools,had Influenza A Aug/September 2023,TIA @ age of 52-no residual effects,thyroid nodule,partially blind rt eye,last seizure early History of Any Multi-Drug Resistant Organisms: None Reported Past Surgical History: Tubal Ligation Additional Past Surgical History / Comment(s): Brain surgery 1979 aneurysm-22 hour surgery, D&C,mult thyroid nodule bx Past Anesthesia/Blood Transfusion Reactions: No Reported Reaction Additional Past Anesthesia/Blood Transfusion Reaction / Comment(s): twightlight sleep did not work for prior thyroid bx's,myelogram, or neck injections. no problems with prior blood transfusion Smoking Status: Former smoker - Past Family History Father Family Medical History: Diabetes Mellitus, Hypertension, Pulmonary Embolus Additional Family Medical History / Comment(s): phlebitis Mother Family Medical History: COPD, Thyroid Disorder Additional Family Medical History / Comment(s): Alzheimer's Medications and Allergies Home Medications Medication Instructions Recorded Confirmed Type Albuterol Sulfate [Ventolin HFA] 1 - 2 puff INHALATION Q6H PRN 12/19/13 09/16/23 History Montelukast Sodium [Singulair] 10 mg PO QAM 12/19/13 09/16/23 History amLODIPine [Norvasc] 5 mg PO HS 07/05/17 09/16/23 History ALPRAZolam [Xanax] 1 mg PO HS 02/20/22 09/16/23 History Ascorbic Acid [Vitamin C] 500 mg PO DAILY 02/20/22 09/16/23 History Cetirizine HCl [Zyrtec] 10 mg PO DAILY 02/20/22 09/16/23 History Dextroamphetamine/Amphetamine 30 mg PO DAILY 02/20/22 09/16/23 History [Adderall] Levothyroxine Sodium [Synthroid] 50 mcg PO QAM 02/20/22 09/16/23 History Vitamin B Complex 1 each PO DAILY 02/20/22 09/16/23 History Cholecalciferol [Vitamin D3 (25 25 mcg PO DAILY 09/14/23 09/16/23 History Mcg = 1000 Iu)] EPINEPHrine (Auto Inject) [Epipen] 0.3 mg IM ONCE PRN 09/14/23 09/16/23 History Fluticasone Propion/Salmeterol 1 puff INHALATION BID 09/14/23 09/16/23 History [Advair 500-50 Diskus] Ibuprofen [Motrin] 800 mg PO Q8H PRN 09/14/23 09/16/23 History Allergies Allergy/AdvReac Type Severity Reaction Status Date / Time bee venom protein (honey bee) Allergy Anaphylaxis Verified 09/16/23 07:28 gluten Allergy Itching Verified 09/16/23 07:28 throat/THROAT SWELLING/WHEEZING
[2023-09-16] MEDS: LACTATED RINGERS 1,000 ML IV SCH (07:34)
[2023-09-16] MEDS ORDERED: LIDOCAINE 1% INJ 10MG/ML (20 ML MDV) ONE (07:49)
[2023-09-16] MEDS ORDERED: PROPOFOL 10 MG/ML 20 ML VIAL IV ONE (07:49)
--- NOTE | 2023-09-16 08:07 | P.PCN ---
Date of Procedure: 09/16/23 Description of Procedure: PREOPERATIVE DIAGNOSIS: GI bleed Epigastric abdominal pain POSTOPERATIVE DIAGNOSIS: Gastroesophageal reflux disease with erosive esophagitis History of GI bleed Epigastric abdominal pain OPERATION: Esophagogastroduodenoscopy with biopsies along antrum and duodenum including eso phagus SURGEON: Corrina Ochoa MD ANESTHESIA: MAC. INDICATIONS: The patient is a 63-year-old female who presents with epigastric abdominal pain and GI bleed Benefits and risks of the procedure were described. Informed consent was obtained. DESCRIPTION: The patient was brought into the endoscopy suite and laid in the left lateral decubitus position. An Olympus gastroscope was passed along the posterior oropharynx down to the distal esophagus where the squamocolumnar junction was encountered at 38 cm from the incisors. The stomach was entered and no bile reflux was found. Additional findings are listed below. Biopsies with cold forceps were obtained of the antrum. The first through third portion of the duodenum was examined. Retroflexion of the scope confirmed Hill grade 2 lower esophageal valve. The squamocolumnar junction demonstrated LA grade B erosive esophagitis. The stomach was desufflated. The patient tolerated the procedure well. FINDINGS: Squamocolumnar junction 38 cm from the incisors. Diaphragmatic hiatus at 38 cm. Hill grade 2 lower esophageal valve LA grade B erosive esophagitis with biopsies obtained Biopsies obtained of the duodenum. Chronic gastritis with biopsies obtained. RECOMMENDATIONS: Upper endoscopy as needed.
[2023-09-16 08:11] VITALS: TEMP 97
--- NOTE | 2023-09-16 08:28 | P.PCN ---
Date of Procedure: 09/16/23 Description of Procedure: PREOPERATIVE DIAGNOSIS: Gastrointestinal bleeding POSTOPERATIVE DIAGNOSIS: Moderate to severe sigmoid diverticulosis without bleeding Internal and external hemorrhoids, grade 3 OPERATION: Colonoscopy to the cecum, ileocecal valve and appendiceal orifice. SURGEON: Corrina Ochoa MD. ANESTHESIA: MAC. INDICATIONS: The patient is a 63-year-old female who presents with gastrointestinal bleeding. Benefits and risks were described and informed consent was obtained. DESCRIPTION OF PROCEDURE: The patient had undergone a GoLYTELY prep prep. The patient had been brought into the operating room and laid in the left lateral decubitus position. After adequate intravenous sedation, the rectum was examined with 2% lidocaine jelly. External hemorrhoids were encountered. The rectal tone was within normal limits. No lesions were palpated in the rectal vault. An Olympus colonoscope was advanced until the cecum, ileocecal valve and appendiceal orifice were clearly viewed. The prep was fair.severe sigmoid diverticulosis was encountered. No colonic polyps were found. No evidence of focal colitis was found. Retroflexion of the scope demonstrated grade 1 internal hemorrhoids without active bleeding or inflammation. The colon was desufflated. The patient had tolerated the procedure well. Withdrawal time was over 6 minutes. FINDINGS: Aronchick preparation quality scale 2+ (1-5) Internal hemorrhoids, grade 3 External prolapsed hemorrhoids, grade 3 Sigmoid diverticulosis, severe No arteriovenous malformations. No adenomatous polyps. No focal colitis. RECOMMENDATIONS: Lower endoscopy in 5 years, 2028 Plan - Discharge Summary Discharge Rx Participant: No New Discharge Prescriptions: Continue Albuterol Sulfate [Ventolin HFA] 1 - 2 puff INHALATION Q6H PRN PRN Reason: Shortness Of Breath Montelukast Sodium [Singulair] 10 mg PO QAM amLODIPine [Norvasc] 5 mg PO HS ALPRAZolam [Xanax] 1 mg PO HS Levothyroxine Sodium [Synthroid] 50 mcg PO QAM Dextroamphetamine/Amphetamine [Adderall] 30 mg PO DAILY Ascorbic Acid [Vitamin C] 500 mg PO DAILY Vitamin B Complex 1 each PO DAILY EPINEPHrine (Auto Inject) [Epipen] 0.3 mg IM ONCE PRN PRN Reason: Anaphylaxis Ibuprofen [Motrin] 800 mg PO Q8H PRN PRN Reason: Pain Cetirizine HCl [Zyrtec] 10 mg PO DAILY Cholecalciferol [Vitamin D3 (25 Mcg = 1000 Iu)] 25 mcg PO DAILY Fluticasone Propion/Salmeterol [Advair 500-50 Diskus] 1 puff INHALATION BID Discharge Medication List Albuterol Sulfate [Ventolin HFA] 1 - 2 puff INHALATION Q6H PRN 12/19/13 [History] Montelukast Sodium [Singulair] 10 mg PO QAM 12/19/13 [History] amLODIPine [Norvasc] 5 mg PO HS 07/05/17 [History] ALPRAZolam [Xanax] 1 mg PO HS 02/20/22 [History] Ascorbic Acid [Vitamin C] 500 mg PO DAILY 02/20/22 [History] Cetirizine HCl [Zyrtec] 10 mg PO DAILY 02/20/22 [History] Dextroamphetamine/Amphetamine [Adderall] 30 mg PO DAILY 02/20/22 [History] Levothyroxine Sodium [Synthroid] 50 mcg PO QAM 02/20/22 [History] Vitamin B Complex 1 each PO DAILY 02/20/22 [History] Cholecalciferol [Vitamin D3 (25 Mcg = 1000 Iu)] 25 mcg PO DAILY 09/14/23 [History] EPINEPHrine (Auto Inject) [Epipen] 0.3 mg IM ONCE PRN 09/14/23 [History] Fluticasone Propion/Salmeterol [Advair 500-50 Diskus] 1 puff INHALATION BID 09/14/23 [History] Ibuprofen [Motrin] 800 mg PO Q8H PRN 09/14/23 [History] Follow up Appointment(s)/Referral(s): Corrina Ochoa MD [STAFF PHYSICIAN] - 10/06/23 10:30 am Patient Instructions/Handouts: Diverticulosis Diet (GEN), Diverticulosis (DC), GERD (Gastroesophageal Reflux Disease) (DC) Activity/Diet/Wound Care/Special Instructions: Repeat colonoscopy in 5 years, 2028 Discharge Disposition: HOME SELF-CARE
[2023-09-16 08:47] VITALS: BP 132/83; PULSE 71; RESP 16
== END 2023-09-16 08:59 | disposition home or self-care (01) ==
LOC: ORWHC2ENDO 07:08
PROVIDERS: ATTEND Surgery Plastic and Reconstructive Surgery
DX: Z12.11 Encounter for screening for malignant neoplasm of colon (principal); K21.00 Gastro-esophageal reflux disease with esophagitis, without bleeding; G40.909 Epilepsy, unspecified, not intractable, without status epilepticus; I10 Essential (primary) hypertension; J45.909 Unspecified asthma, uncomplicated; K31.9 Disease of stomach and duodenum, unspecified; K57.30 Diverticulosis of large intestine without perforation or abscess without bleeding; K64.2 Third degree hemorrhoids; K64.4 Residual hemorrhoidal skin tags; M06.9 Rheumatoid arthritis, unspecified; M79.7 Fibromyalgia; Z79.51 Long term (current) use of inhaled steroids; Z79.890 Hormone replacement therapy; Z86.73 Personal history of transient ischemic attack (TIA), and cerebral infarction without residual deficits; Z87.891 Personal history of nicotine dependence; Z91.030 Bee allergy status; Z98.51 Tubal ligation status; Z79.899 Other long term (current) drug therapy
CPT/HCPCS: 88305; 43239; J2001; J2704; G0121; 45378

== ENCOUNTER → 2024-09-23 | Outpatient (CLI) | payer OTHER ==
--- NOTE | 2024-09-23 16:14 | CA ---
Exercise Stress Test Report Name: Marry Diego Exam Date: 09/23/2024 11:14 Exam Location: [facility] Stress Ht (in): 62 Wt (lb): 139 BSA: 1.64 Ordering Phys: Dalton Cabezas DO Referring Phys: Dalton Cabezas DO Technologist: LUIGI HERNANDEZ Age: 64 Gender: F : 1960 Procedure CPT: Indications: R07.9 CHEST PAIN, UNSPECIFIED J44.9 CHRONIC OBSTRU ICD-10 Codes: Patient History: CP, PALP, TIA, HIGH CHOL, HTN, FAMILY HX, ASTHMA. Medications: AMLODIPINE,,,, SINGULAIR,,,, LEVOTHYROXINE,,,, ADIVAIR,,,, INHAILER,,,, ATORVASTATIN,,,, XANAX,,, Meds past 24 hrs: Pretest Chest Pain: STRESS TEST Fei Protocol Exercise Duration (min:sec): 09:[address] Depressions (mm): Angina Score: Hassan Score: Resting HR (bpm): 78 Peak HR (bpm): 144 Resting BP (mmHg): 144 / 91 Peak BP (mmHg): 180 / 100 MPHR: 158 Target HR: 134 % MPHR: 91 METS: 11.2 Total Dose: Peak Dose: Atropine: Double Product: 63076 BP Response: Stress Termination: TARGET HR REACHED/MAX EXERTION Stress Symptoms: NO SYMPTOMS Stress Summary: ECG ANALYSIS Resting ECG: Stress ECG: CONCLUSIONS Baseline EKG revealed normal sinus rhythm without significant ST and T wave changes. Patient walked on a standard Fei protocol for a total duration of 9 minutes 32 seconds and achieved a maximal heart rate of 144 bpm. He did not have any significant symptoms. There was no angina. There was no significant arrhythmia. There was no evidence of any ST segment changes to indicate ischemia. This is a negative stress test with good exercise capacity. No evidence of ischemia. Dr. Fausto Cazares MD (Electronically Signed) Final Date: 23 September 2024 16:14
== END | disposition home or self-care (01) ==
LOC: RADNMMAIN 10:47
PROVIDERS: ATTEND Family Medicine
DX: J44.9 Chronic obstructive pulmonary disease, unspecified (principal)
CPT/HCPCS: 93017

== ENCOUNTER → 2024-09-27 | Outpatient (CLI) | payer OTHER ==
[2024-09-27 13:45] VITALS: BP 136/91; PULSE 76; RESP 16; TEMP 98.2
--- NOTE | 2024-09-27 17:20 | P.SLEEP ---
History of Present Illness H&P Date: 09/27/24 Chief Complaint: Insomnia This is a 65-year-old female patient was coming in for a chronic insomnia management. The patient has been having insomnia for the past 30 years. She started having symptoms of insomnia at the age of 32. Over the years, her condition got worse and for now, the patient states that she is unable to generate more than 3 hours of sleep. She goes to bed between 10 PM and midnight and she gets out of bed at around 7 to 9 AM in the morning. Number of hours of sleep is quite limited. The patient takes more than an hour to generate sleep when she wakes up frequently in the middle of the night and ultimately she gets out of bed and she feels quite fatigued and tired during the day. She does not take any naps during the day. She has some mild soft snoring. No witnessed apneas. During her efforts to fall asleep, the patient gets quite anxious and she gets out of bed and she eats and watch television and ultimately she goes back to bed. She has chronic body aches and pain related to fibromyalgia. She also has a component of chronic anxiety. No nighttime chest pain or shortness of breath. No nighttime heartburn. No restlessness in lower extremities. No frequent sleep talking or sleepwalking. No head trauma. No substance abuse. No alcoholism. She has no active signs of depression. Her current [place] score is at 1. Other comorbidities include COPD/asthma, hypothyroidism, hypertension and hyperlipidemia. Over the years, the patient has tried various hypnotics and she has failed to respond to those drugs due to adverse reactions and side effects. She has tried Flexeril, trazodone, Ambien and she did not get any positive response from those drugs. She is coming in accordingly for further advice. She is currently retired. 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 She drinks 2 cups of coffee in the morning. She is a former smoker and she quit smoking 8 years ago. No substance abuse. No alcoholism. No PTSD. Review of Systems Constitutional: Reports fatigue Eyes: denies as per HPI, denies blurred vision, denies bulging eye, denies decreased vision, denies diplopia, denies discharge, denies dry eye, denies irr itation, denies itching, denies pain, denies photophobia, denies loss of peripheral vision, denies loss of vision, denies tunnel vision/blind spots Ears: deny: decreased hearing, ear discharge, earache, tinnitus Ears, nose, mouth and throat: Reports as per HPI Breasts: absent: as per HPI, change in shape, gynecomastia, masses, nipple discharge, pain, skin changes, swelling Cardiovascular: Reports as per HPI Respiratory: Reports as per HPI Gastrointestinal: Reports as per HPI Genitourinary: Reports as per HPI Menstruation: Reports as per HPI Musculoskeletal: Reports as per HPI (Diffuse body aches related to fibromyalgia), Reports morning stiffness, Reports myalgias Musculoskeletal: absent: ankle pain, ankle stiffness, ankle swelling, as per HPI, elbow pain, elbow stiffness, elbow swelling, foot pain, foot stiffness, foot swelling, hand pain, hand stiffness, hand swelling, hip pain, hip stiffness, hip swelling, knee pain, knee stiffness, knee swelling, shoulder pain, shoulder stiffness, shoulder swelling, wrist pain, wrist stiffness, wrist swelling Integumentary: Reports as per HPI Neurological: Reports as per HPI Psychiatric: Reports anxiety, Reports difficulty concentrating, Reports sleep disturbances Endocrine: Reports as per HPI, Reports fatigue Hematologic/Lymphatic: Reports as per HPI Allergic/Immunologic: Reports as per HPI Past Medical History Past Medical History: Asthma, CVA/TIA, Eye Disorder, Fibromyalgia, GERD/Reflux, Hypertension, Rheumatoid Arthritis (RA), Seizure Disorder, Thyroid Disorder Additional Past Medical History / Comment(s): prior bleeding with stools,had Influenza A September 2023,TIA @ age of 52-no residual effects,thyroid nodule,partially blind rt eye,last seizure early History of Any Multi-Drug Resistant Organisms: None Reported Past Surgical History: Tubal Ligation Additional Past Surgical History / Comment(s): Brain surgery 1979 aneurysm-22 hour surgery, D&C,mult thyroid nodule bx Past Anesthesia/Blood Transfusion Reactions: No Reported Reaction Additional Past Anesthesia/Blood Transfusion Reaction / Comment(s): twightlight sleep did not work for prior thyroid bx's,myelogram, or neck injections. no problems with prior blood transfusion Past Psychological History: Anxiety Smoking Status: Former smoker Past Alcohol Use History: Occasional Additional Past Alcohol Use History / Comment(s): quit smoking 2016,started smoking at age 17 on and off Past Drug Use History: None Reported - Past Family History Father Family Medical History: Diabetes Mellitus, Hypertension, Pulmonary Embolus Additional Family Medical History / Comment(s): phlebitis Mother Family Medical History: COPD, Thyroid Disorder Additional Family Medical History / Comment(s): Alzheimer's Medications and Allergies Home Medications Medication Instructions Recorded Confirmed Type Albuterol Sulfate [Ventolin HFA] 1 - 2 puff INHALATION Q6H PRN 12/19/13 09/27/24 History Montelukast Sodium [Singulair] 10 mg PO QAM 12/19/13 09/27/24 History amLODIPine [Norvasc] 5 mg PO HS 07/05/17 09/27/24 History ALPRAZolam [Xanax] 1 mg PO HS 02/20/22 09/27/24 History Ascorbic Acid [Vitamin C] 500 mg PO DAILY 02/20/22 09/27/24 History Cetirizine HCl [Zyrtec] 10 mg PO DAILY PRN 02/20/22 09/27/24 History Dextroamphetamine/Amphetamine 30 mg PO DAILY 02/20/22 09/16/23 History [Adderall] Levothyroxine Sodium [Synthroid] 50 mcg PO QAM 02/20/22 09/27/24 History Vitamin B Complex 1 each PO DAILY 02/20/22 09/27/24 History Cholecalciferol [Vitamin D3 (25 25 mcg PO DAILY 09/14/23 09/27/24 History Mcg = 1000 Iu)] EPINEPHrine (Auto Inject) [Epipen] 0.3 mg IM ONCE PRN 09/14/23 09/27/24 History Fluticasone Propion/Salmeterol 1 puff INHALATION BID 09/14/23 09/27/24 History [Advair 500-50 Diskus] Ibuprofen [Motrin] 800 mg PO Q8H PRN 09/14/23 09/27/24 History Allergies Allergy/AdvReac Type Severity Reaction Status Date / Time bee venom protein (honey bee) Allergy Anaphylaxis Verified 09/16/23 07:28 gluten Allergy Itching Verified 09/16/23 07:28 throat/THROAT SWELLING/WHEEZING Physical Exam Vitals: Vital Signs Temp Pulse Resp BP Pulse Ox 09/27/24 13:44 98.2 F 76 16 136/91 100 Intake and Output 09/27/24 09/27/24 09/27/24 06:59 14:59 22:59 Other: Weight 64.864 kg The patient appeared well nourished and normally developed. Vital signs as documented. Head exam is unremarkable. No scleral icterus or corneal arcus noted. Neck is without jugular venous distension, thyromegaly, or carotid bruits. Carotid upstrokes are brisk bilaterally. The patient has a Mallampati class I Lungs are clear to auscultation and percussion. Cardiac exam reveals the PMI to be normally sized and situated. Rhythm is regular. First and second heart sounds normal. No murmurs, rubs or gallops. Abdominal exam reveals normal bowel sounds, no masses, no organomegaly and no aortic enlargement. Extremities are nonedematous and both femoral and pedal pulses are normal. Examination of the skin revealed no evidence of significant rashes, suspicious appearing nevi or other concerning lesions. Neurologically, the patient is awake and alert and the patient does not have any focal neurological deficit. Cranial nerves are essentially intact. Assessment and Plan Plan: Chronic insomnia, likely secondary to her comorbidities. Of significance, these are chronic anxiety and fibromyalgia. In addition, the patient has required poor sleep hygiene measures over the years. The patient is taking Xanax at nighttime which relieves some of the anxiety and she is able to generate around 3 hours of sleep on a 24-hour period. No suspicion for obstructive sleep apnea. No symptoms of restless leg syndrome. No depression. No substance abuse. No underlying neurological disorders. The patient has a remote history of epilepsy and she has been seizure-free since . COPD/asthma, currently inactive and stable Hypothyroidism Hyperlipidemia Hypertension Rheumatoid arthritis Fibromyalgia Chronic anxiety Plan I did ask discussion with the patient regarding her chronic insomnia. The patient has failed pharmacotherapy in the past The patient is very much interested in behavioral modifications and other nonpharmacologic treatment for chronic insomnia. I introduced cognitive behavioral therapy. The patient is going to implement principles of sleep restriction and stimulus control. This will be complemented by improving her sleep hygiene measures. For now, we will going to restrict her number of hours in bed between midnight and 5 AM in the morning. The goal is to improve her overall sleep efficiency and once an adequate sleep efficiency is achieved, we will gradually increase the number of hours in bed. She is going to keep a sleep diary. Will implement relaxation techniques, stimulus control, music therapy. Continue Xanax Rest of medication will be kept unchanged. The patient will see me back in 6 to 8 weeks and we will going to follow-up on her progress and make further adjustments accordingly. Sleep Note - Sleep Data ESS Total: 1 - Sleep Note Sleep Note: Temperature: 98.2 F Pulse Rate: 76 Respiratory Rate: 16 Blood Pressure: 136/91 SpO2: 100 Height: 5 ft 2 in Weight: 64.864 kg BMI: Neck Circumference: 13.5
== END ==
LOC: 3 N SLEEP 13:22
PROVIDERS: ATTEND Internal Medicine Critical Care Medicine
DX: G47.00 Insomnia, unspecified (principal); J44.89 Other specified chronic obstructive pulmonary disease; E03.9 Hypothyroidism, unspecified; E78.5 Hyperlipidemia, unspecified; I10 Essential (primary) hypertension; M06.9 Rheumatoid arthritis, unspecified; M79.7 Fibromyalgia; F41.9 Anxiety disorder, unspecified; Z91.030 Bee allergy status; Z91.018 Allergy to other foods
CPT/HCPCS: 99211